=== PATIENT | male | born 1970 | race Caucasian/White ===

== ENCOUNTER → 2016-07-16 | Outpatient (CLI) | payer OTHER ==
[~2016-07-16] MED LIST: ALLEGRA-D 24 H1 EACH PO; IMITREX100 MG PO; NEXIUM40 MG PO; TYLENOL WITH CO1 TAB PO
== END | disposition short-term general hospital (02) ==
LOC: CLPAIN 08:08
DX: G43.909 Migraine, unspecified, not intractable, without status migrainosus (principal)
CPT/HCPCS: J0585

== ENCOUNTER 2016-09-11 09:29 | Emergency (ER) | payer OTHER ==
[~2016-09-11] VITALS: Ht 177.8 cm; Wt 83.9 kg
== END 2016-09-11 11:10 | disposition short-term general hospital (02) ==
LOC: ER 09:29
DX: G43.909 Migraine, unspecified, not intractable, without status migrainosus (principal); I25.10 Atherosclerotic heart disease of native coronary artery without angina pectoris; K21.9 Gastro-esophageal reflux disease without esophagitis; D50.9 Iron deficiency anemia, unspecified; Z79.899 Other long term (current) drug therapy
CPT/HCPCS: J1885; J2550